=== PATIENT | male | born 1955 | race Caucasian/White ===

== ENCOUNTER → 2017-08-01 | Day surgery (SDC) | payer OTHER ==
[~2017-08-01] VITALS: Ht 170.2 cm; Wt 56.7 kg
--- NOTE | 2017-08-01 18:23 | ED CRITICAL CARE ---
History of Present Illness General Chief Complaint: Syncope and Near-Syncope Stated Complaint: BIBA SYNCOPE Source: family, EMS Exam Limitations: clinical condition Vital Signs & Intake/Output Vital Signs & Intake/Output Vital Signs Date Time Temp Pulse Resp B/P B/P Pulse O2 O2 Flow FiO2 Mean Ox Delivery Rate 08/01 1921 99 96 Ventilator 08/01 192 97 80/0 97 Ventilator 08/01 1904 40/0 08/01 1904 92 0/0 08/01 1859 88 08/01 1851 138/80 08/01 1849 89 147/70 97 Ventilator 08/01 1847 83 88 08/01 1846 84 08/01 1845 90 150/80 08/01 1838 97 140/0 Triage Nurses Notes Reviewed? yes Onset: Abrupt Duration: minute(s): (few) Timing: single episode today Injury Environment: home Severity: severe HPI: 62 year old male with no known past medical history presents via EMS from home for syncopal episodes in the bathroom and vomiting. Per EMS was found hyoptensive and pale. No known trauma. Patient found with poor verbal response , almost intubated in field but positive gag reflex. Sister reported he went to use the bathroom and then started moaning. Peripheral line started in field, fluids started. On arrival to the ER patient is pale, cold to touch on lower extremities with firm abdomen. He appeared to be post ictal on arrival with snoring respirations and right arm rigidity but quickly started to wake up. Patient denied any abdominal pain/chest pain/headache. Moving all 4 extremities. Patient's sister later arrived and confirmed he was fine all day today and then stated he had to go to the bathroom. When she did not hear the shower turn on and heard him moaning she found him not looking well and called EMS. She thinks he may have passed out. He does not see doctors. He is a smoker. No home medications. He last went to work on Monday overnight at [employer] and was fine. Past History Travel History Traveled to [place] past 21 day No Medical History Any Pertinent Medical History? none (UNKNOWN) Surgical History Surgical History: unobtainable Psychosocial History Tobacco Use: Current Daily Use ETOH Use: denies use Family History Hx Contributory? No Review of Systems Review of Systems Constitutional: Reports: weakness. Eyes: Reports: no symptoms. Ears, Nose, Throat, Mouth: Reports: no symptoms. Respiratory: Reports: no symptoms. Cardiovascular: Reports: syncope. Denies: chest pain. Gastrointestinal/Abdominal: Denies: abdominal pain. Genitourinary: Reports: no symptoms. Musculoskeletal: Reports: no symptoms. Skin: Reports: no symptoms. Neurological/Psychological: Reports: see HPI, confusion. All Other Systems: Reviewed and Negative Physical Exam Physical Exam General Appearance: alert, awake, anxious, severe distress, thin Head: atraumatic Eyes: Bilateral: PERRL. Ears, Nose, Throat, Mouth: FOAMING AT MOUTH Neck: normal inspection, supple, full range of motion Respiratory: lungs clear, accessory muscle use, respiratory distress Cardiovascular: regular rate/rhythm, normal peripheral pulses Peripheral Pulses: 2+ radial (R), 2+ radial (L), 2+ femoral (R), 2+ femoral (L) Gastrointestinal: SCAPHOID, FIRM Genital/Rectal: normal genital exam Extremities: 2+ LOWER PITTING EDEMA, COLD TO TOUCH, 2+ DP PULSES Neurologic/Psych: no motor/sensory deficits, awake, alert, CONFUSED Skin: diaphoresis, pallor, COOL Core Measures ACS in differential dx? Yes CVA/TIA Diagnosis No Sepsis Present: No Sepsis Focused Exam Completed? No Progress Differential Diagnoses I considered the following diagnoses in my evaluation of the patient: [AMI, DISSECTION, SYNCOPE, ICH, SEIZURE, CVA, AAA, PE] Plan of Care: Orders Procedure Date/time Status EKG 08/01 1831 Active PATIENT GIVEN NARCAN ON ARRIVAL WITHOUT RESPONSE. IV FLUIDS STARTED. GOOD CAROTID PULSE, POST ICTAL. FIRM ABDOMEN. TAKEN TO CT UPON ARRIVAL WITH CONTINUOUS MONITOR. CT SCAN SHOWED LARGE AAA NONCONTRAST WHICH WAS CONVERTED TO IV CONTRAST. RETURNED TO R0OM WITH INCREASING RESPIRTAORY DISTRESS. STILL NO C/ O PAIN. RADIOLOGY CONFIRMED RUPTURED AAA. PATIENT INTUBATED OROTRACHEALLY 7.5MM ETT. RIGHT FEMORAL CRASH TRIPLE LUMEN PLACED. MASSIVE TRANSFUSION PROTOCOL ORDERED AND UNCROSS MATCHED BLOOD STARTED WITH RAPID TRANSFUSER. DOPAMINE/LEVOPHED DRIPS READIED. SYSTOLIC BLOOD PRESSURE MAINTAINED AT 130'S. SURGICAL PA NOTIFIED BY JS MENDEZ AND VASCULAR SURGERY DR HOANG WAS NOTIFIED. OR WAS READIED. D/W FAMILY (2 SISTERS) AFTER PATIENT TRANSPORTED TO OR. DIAGNOSIS DISCUSSED, I INFORMED THEM OF PATIENTS POSSIBLE GRAVE PROGNONSIS. COUNTY DIRECTOR OFFERED BUT REFUSED. THEY WANTED TO GO HOME AND WAIT FOR FURTHER NEWS. I OFFERED TO TAKE THEM TO THE OR WAITING ROOM. Diagnostic Imaging: Viewed by Me: CT Scan. Discussed w/RAD: CT Scan. Radiology Impression: PATIENT: LANDY HANSON PRESENT AGE: 62 PATIENT ACCOUNT NO: [id number] : 56 LOCATION: [facility] ORDERING PHYSICIAN: Yazan WEINSTEIN SERVICE DATE: 08/01/17 EXAM TYPE: CAT - CT CERV SPINE WO IV CONTRAST; CT HEAD WO IV CONTRAST EXAMINATION: CT HEAD WITHOUT CONTRAST CT CERVICAL SPINE WITHOUT CONTRAST CLINICAL INFORMATION: Unresponsive. Abdominal breathing. Altered mental status. COMPARISON: None TECHNIQUE: CT of the head and cervical spine were performed without intravenous contrast. Multiplanar reformats were rendered and reviewed. The acquired images are motion degraded. DLP: 1976 mGy-cm. FINDINGS: CT head: There is no intracranial hemorrhage, extra-axial collection, or CT evidence of large territory infarct. There are age indeterminate but chronic appearing infarcts in the right caudate, left subinsular white matter, right periatrial white matter, and left cerebellum. There is no mass effect or midline shift. The ventricles are normal in size without evidence of hydrocephalus. There is mild scattered hypoattenuation in the bilateral cerebral white matter, which is nonspecific but likely reflects small vessel disease. The extracranial soft tissues are within normal limits. The calvarium is intact. CT cervical spine: The craniocervical junction is intact. There is trace anterolisthesis of C3 on C4 and trace retrolisthesis of C4 on C5 with alignment otherwise maintained. No cervical spine fracture is seen. There is intervertebral disc height loss with degenerative endplate and bone marrow changes at C4-C5, C5-C6, and C6-C7. Degenerative endplate changes are also present in the upper thoracic spine. There is small right pleural effusion. There is paraseptal emphysema at the lung apices. Motion artifact blurs the soft tissue planes in the neck. No gross fluid collection is seen. There are atheromatous changes involving the bilateral carotid arteries. IMPRESSION: CT head: 1. No large territory infarct, hemorrhage, or midline shift. 2. Age-indeterminate chronic appearing infarcts in the right caudate, left subinsular white matter, right periatrial white matter, and left cerebellum. CT cervical Spine: 1. No cervical spine fracture or traumatic malalignment. 2. Multilevel degenerative spondylotic changes. DICTATED BY: Janeth Yeung MD DATE/TIME DICTATED:08/01/171827 [employer]ENER [employer] CUST[employer]S:STACY DATE/TIME TRANSCRIBED:08/01/171827 CONFIDENTIAL, DO NOT COPY WITHOUT APPROPRIATE AUTHORIZATION. <Electronically signed in Other Vendor System> SIGNED BY: Janeth Yeung MD 08/01/17 184, PATIENT: LANDY HANSON PRESENT AGE: 62 PATIENT ACCOUNT NO: [id number] : 56 LOCATION: [facility] ORDERING PHYSICIAN: Yazan WEINSTEIN SERVICE DATE: 08/01/17 EXAM TYPE: CAT - CT ABD & PELVIS W/O IV CONTRAS; CT CHEST WO IV CONTRAST EXAMINATION: CT CHEST WITHOUT CONTRAST CT ABDOMEN AND PELVIS WITHOUT CONTRAST CLINICAL INFORMATION: UNRESPONSIVE, AGONAL BREATHING, AMS COMPARISON: No pertinent prior studies are available for comparison. TECHNIQUE: Multidetector volumetric imaging was performed from the thoracic inlet through the pubic symphysis. Sagittal and coronal images were reformatted. DOSE: 408 mGy -cm FINDINGS: -CHEST- LUNG: There is mild dependent atelectasis in both lungs. No focal consolidation. No suspicious pulmonary nodules. Central airways are clear. MEDIASTINUM: Heart is borderline enlarged. There is calcific atherosclerosis in the thoracic aorta without aneurysmal dilatation. Small pericardial effusion. The esophagus is filled with fluid, suggesting reflux. There is a small moderate-sized sliding-type hiatal hernia. PERICARDIUM/PLEURA: Small moderate-sized dependent right pleural effusion. There is a small pleural effusion on the left. Small pericardial effusion. CHEST WALL/AXILLA: No adenopathy. Body habitus appears cachectic with anasarca. -ABDOMEN/PELVIS- LIVER , GALLBLADDER, BILIARY TREE: The liver is normal in size, shape, and attenuation. No focal hepatic lesion or biliary ductal dilatation is present. Gallbladder is contracted and contains at least one calcified gallstone measuring 1.2 cm in diameter. Evaluation is region is somewhat limited due to mass effect from the adjacent retroperitoneal hematoma. PANCREAS: Atrophic. The retroperitoneal hematoma produces mass effect upon the pancreatic head, displaced anteriorly. SPLEEN: Unremarkable. ADRENAL GLANDS: Not well seen due to the anasarca. KIDNEYS AND URETERS: The right kidney is displaced anterolaterally as a result of the hematoma is normal in size. No nephrolithiasis or hydronephrosis identified. BLADDER: Partially decompressed and unremarkable. GASTROINTESTINAL TRACT: Evaluation of the bowel is somewhat limited due to the lack of contrast resulting from the intraperitoneal fluid and the absence of intravenous contrast material as well as the degree of anasarca. No bowel dilatation is identified. As mentioned above, there is a small to moderate-sized sliding-type hiatal hernia. A fundal diverticulum is likely present of the stomach. Bowel is shifted into the left mid abdomen as a result of mass effect produced by the right retroperitoneal hematoma. No free air identified. There is a jvfbg-[id number]-utvrkure volume of intraperitoneal free fluid. ABDOMINAL WALL: No hernias. Mild anasarca. VASCULATURE: There is a large infrarenal abdominal aortic aneurysm measuring 6 x 6 cm in cross-section and 10 cm in length, extending from just below the renal arteries to the aortic bifurcation. There is significant associated calcific atherosclerosis atherosclerosis. There is a large, heterogeneous hematoma in the right retroperitoneum extending from the AAA, consistent with a ruptured AAA. As mentioned above, this produces mass effect upon the adjacent structures in the right mid abdomen and right hemipelvis. The hematoma measures roughly 10 x 8 x 22 cm (transverse by AP by craniocaudal). LYMPH NODES: No adenopathy identified, though sensitivity for nodes is somewhat limited on this study. PELVIC VISCERA: Prostate gland is unremarkable. OSSEUS STRUCTURES: There is [id number]-[id number] multilevel degenerative disc disease in the thoracal lumbar spine with mild right convex thoracic scoliotic curvature. Mild degenerative changes are present in the SI joints and hips. No acute osseous abnormalities are identified. IMPRESSION: 1. Ruptured infrarenal abdominal aortic aneurysm with an associated large right retroperitoneal hematoma. 2. Small to moderate volume of intraperitoneal free fluid. 3. Small to moderate-sized right and small left pleural effusions. 4. Anasarca 5. Small to moderate-sized sliding-type hiatal hernia and an adjacent fundal diverticulum. Findings were discussed by telephone with Dr. Mendez at 6: 38 PM on 08/01/2017. DICTATED BY: Ovidio Serrano MD DATE/TIME DICTATED:08/01/171831 [employer] C[employer]:STACY DATE/TIME TRANSCRIBED:08/01/171831 CONFIDENTIAL, DO NOT COPY WITHOUT APPROPRIATE AUTHORIZATION. <Electronically signed in Other Vendor System> SIGNED BY: Ovidio Serrano MD 08/01/17 0203, PATIENT: LANDY HANSON PRESENT AGE: 62 PATIENT ACCOUNT NO: [id number] : 56 LOCATION: [facility] ORDERING PHYSICIAN: Liya Saldivar MD SERVICE DATE: 08/01/17-1817 EXAM TYPE: CAT - CT ABD & PELVIS ANGIOGRAM; CTA CHEST-AORTIC DISSECTION EXAMINATION: CT ANGIOGRAM CHEST, ABDOMEN AND PELVIS CLINICAL INFORMATION: Hypotensive. COMPARISON: None. TECHNIQUE: Noncontrast axial images obtained through the chest. Multiple axial images were obtained through the chest abdomen and pelvis following the administration of 98 mL of Optiray 320 intravenous contrast. Coronal and sagittal reformatted images performed at CT scanner. No 3-D imaging. DLP: 632.6 mGy-cm FINDINGS: VASCULAR: There are diffuse atherosclerotic vascular wall calcifications of the thoracic and abdominal aorta. There is no aneurysm or dissection of the thoracic aorta. There is both aneurysmal dilatation and dissection of the infrarenal abdominal aorta. The aorta measures approximately 6.5 cm AP. There is a dissection of the aorta at the mid abdominal aorta with partial opacification of the false lumen. False lumen measures about 1.4 cm transverse. The true lumen measures 2.6 cm transverse at this level. There is a large retroperitoneal hematoma enlarging the right iliopsoas muscle. This measures approximately 10.5 x 8 x 19.5 cm. The hematoma extends anteriorly around the root of the aorta on the right side of the upper abdomen. There is runoff into the external and internal iliac vessels. These vessels also have atherosclerotic vascular wall calcifications but no stenosis or aneurysm. There is enhancement of the celiac axis but the origin of the celiac axis is thin and attenuated but no dissection of this vessel. There is a normal enhancing SMA. The right renal artery is enhancing but is thin and attenuated. The left renal artery is not visualized, nonenhancing. CT CHEST: Mediastinum: There is mild dilatation of the thoracic esophagus with air-fluid level in the upper thoracic esophagus. There is a moderate-sized hiatal hernia. No mediastinal mass. No significant lymphadenopathy. There is a small pericardial effusion. Lungs: Small region of dependent atelectasis at right lung base. Left lung is clear. Fluid: There are bilateral pleural effusions. The volume is moderate on the right and small on the left. Axilla: No significant lymphadenopathy. CT SCAN ABDOMEN AND PELVIS: Liver, Gallbladder, And Biliary Tree: The liver is normal in size, shape, and attenuation. No focal hepatic lesion or biliary ductal dilatation is present. There are calcified gallstones at the neck of the gallbladder. Pancreas: Unremarkable. There is mass effect upon the pancreas by the large retroperitoneal hematoma. Spleen: Unremarkable. Adrenal Glands: Not well seen. Kidneys And Ureters: The right kidney is displaced anteriorly by the large hematoma but there is enhancement of the cortex. There is no enhancement of the left kidney cortex. Bladder: Unremarkable. Gastrointestinal Tract: Limited evaluation of the bowel. No acute change of the bowel. No bowel obstruction. No bowel wall thickening or edema. Moderate volume of stool in the colon. Mesentery: There is a large volume of abdominal ascites. This has a density measurement of 15 Hounsfield units. Abdominal Wall: No significant hernia is appreciated. Lymph Nodes: Normal. Pelvic Viscera: Unremarkable. Osseous Structures: Unremarkable. IMPRESSION: 1. A 6.5 cm infrarenal aneurysm with dissection of the aneurysm. There is a large retroperitoneal hematoma. There is no enhancement of the left kidney or left renal artery. There is attenuation of the right renal artery and the SMA. 2. Abdominal ascites. 3. Bilateral pleural effusions right larger in volume than left. This critical result was discussed with JS Jones on 08/01/2017, 6:50 PM and it was ascertained that the content and urgency of the report was understood at the time of direct communication. DICTATED BY: Juan Pablo Stewart MD DATE/TIME DICTATED:08/01/171831 [employer] CUST[employer]S:STACY DATE/TIME TRANSCRIBED:08/01/171831 CONFIDENTIAL, DO NOT COPY WITHOUT APPROPRIATE AUTHORIZATION. <Electronically signed in Other Vendor System> SIGNED BY: Juan Pablo Stewart MD 08/01/17 514 Initial ED EKG: NSR, nonspecific ST T wave chg Rhythm Strip: normal sinus rhythm, sinus tachycardia Departure Departure Disposition: STILL A PATIENT Condition: Critical Clinical Impression Primary Impression: AAA (abdominal aortic aneurysm, ruptured) Secondary Impressions: Ascites, Pleural effusion, Respiratory failure, Syncope and collapse Departure Forms: Customer Survey General Discharge Information OR/GI Note Spoke With: Blaire HENSLEY,Jose Pelayo. ED Treatment Decision: LANDY HANSON requires urgent operative management or an emergent procedure that cannot be performed in the Emergency Room setting. Transport To: [facility] Procedures Central Line Central Line Lumen: triple Central Line Procedure: Yes: bentadine prep?. No: sterile drapes applied, sterile dressing applied. Central Line Position: femoral (R) Complications: none Central Line Post Position: sutured, good blood return Intubation Time of Intubation: 1829 Intubation Method: orotracheal Tube Size (cm): 7.5 Medications: ETOMIDATE, VECURONIUM Breath Sounds After Intubation: equal Intubation Complications: vomited Post Intubation Xray? No Critical Care Note Critical Care Note Critical Care Time: 75-104 min the right iliopsoas muscle. This measures approximately 10.5 x 8 x 19.5 cm. The hematoma extends anteriorly around the root of the aorta on the right side of the upper abdomen. There is runoff into the external and internal iliac vessels. These vessels also have atherosclerotic vascular wall calcifications but no stenosis or aneurysm. There is enhancement of the celiac axis but the origin of the celiac axis is thin and attenuated but no dissection of this vessel. There is a normal enhancing SMA. The right renal artery is enhancing but is thin and attenuated. The left renal artery is not visualized, nonenhancing. CT CHEST: Mediastinum: There is mild dilatation of the thoracic esophagus with air-fluid level in the upper thoracic esophagus. There is a moderate-sized hiatal hernia. No mediastinal mass. No significant lymphadenopathy. There is a small pericardial effusion. Lungs: Small region of dependent atelectasis at right lung base. Left lung is clear. Fluid: There are bilateral pleural effusions. The volume is moderate on the right and small on the left. Axilla: No significant lymphadenopathy. CT SCAN ABDOMEN AND PELVIS: Liver, Gallbladder, And Biliary Tree: The liver is normal in size, shape, and attenuation. No focal hepatic lesion or biliary ductal dilatation is present. There are calcified gallstones at the neck of the gallbladder. Pancreas: Unremarkable. There is mass effect upon the pancreas by the large retroperitoneal hematoma. Spleen: Unremarkable. Adrenal Glands: Not well seen. Kidneys And Ureters: The right kidney is displaced anteriorly by the large hematoma but there is enhancement of the cortex. There is no enhancement of the left kidney cortex. Bladder: Unremarkable. Gastrointestinal Tract: Limited evaluation of the bowel. No acute change of the bowel. No bowel obstruction. No bowel wall thickening or edema. Moderate volume of stool in the colon. Mesentery: There is a large volume of abdominal ascites. This has a density measurement of 15 Hounsfield units. Abdominal Wall: No significant hernia is appreciated. Lymph Nodes: Normal. Pelvic Viscera: Unremarkable. Osseous Structures: Unremarkable. IMPRESSION: 1. A 6.5 cm infrarenal aneurysm with dissection of the aneurysm. There is a large retroperitoneal hematoma. There is no enhancement of the left kidney or left renal artery. There is attenuation of the right renal artery and the SMA. 2. Abdominal ascites. 3. Bilateral pleural effusions right larger in volume than left. This critical result was discussed with JS Jones on 08/01/2017, 6:50 PM and it was ascertained that the content and urgency of the report was understood at the time of direct communication. DICTATED BY: Juan Pablo Stewart MD DATE/TIME DICTATED:08/01/171831 [employer] C[employer]S:STACY DATE/TIME TRANSCRIBED:08/01/171831 CONFIDENTIAL, DO NOT COPY WITHOUT APPROPRIATE AUTHORIZATION. <Electronically signed in Other Vendor System> SIGNED BY: Juan Pablo Stewart MD 08/01/171908 Initial ED EKG: NSR, nonspecific ST T wave chg Rhythm Strip: normal sinus rhythm, sinus tachycardia Departure Departure Disposition: STILL A PATIENT Condition: Critical Clinical Impression Primary Impression: AAA (abdominal aortic aneurysm, ruptured) Secondary Impressions: Ascites, Pleural effusion, Respiratory failure, Syncope and collapse Departure Forms: Customer Survey General Discharge Information OR/GI Note Spoke With: Blaire HENSLEY,Jose Fowler ED Treatment Decision: LANDY HANSON requires urgent operative management or an emergent procedure that cannot be performed in the Emergency Room setting. Transport To: [facility] Procedures Central Line Central Line Lumen: triple Central Line Procedure: Yes: bentadine prep?. No: sterile drapes applied, sterile dressing applied. Central Line Position: femoral (R) Complications: none Central Line Post Position: sutured, good blood return Intubation Time of Intubation: 1829 Intubation Method: orotracheal Tube Size (cm): 7.5 Medications: ETOMIDATE, VECURONIUM Breath Sounds After Intubation: equal Intubation Complications: vomited Post Intubation Xray? No Critical Care Note Critical Care Note Critical Care Time: 75-104 min
--- NOTE | 2017-08-01 18:41 | CT SCAN REPORT ---
EXAMINATION: CT HEAD WITHOUT CONTRAST CT CERVICAL SPINE WITHOUT CONTRAST CLINICAL INFORMATION: Unresponsive. Abdominal breathing. Altered mental status. COMPARISON: None TECHNIQUE: CT of the head and cervical spine were performed without intravenous contrast. Multiplanar reformats were rendered and reviewed. The acquired images are motion degraded. DLP: 1976 mGy-cm. FINDINGS: CT head: There is no intracranial hemorrhage, extra-axial collection, or CT evidence of large territory infarct. There are age indeterminate but chronic appearing infarcts in the right caudate, left subinsular white matter, right periatrial white matter, and left cerebellum. There is no mass effect or midline shift. The ventricles are normal in size without evidence of hydrocephalus. There is mild scattered hypoattenuation in the bilateral cerebral white matter, which is nonspecific but likely reflects small vessel disease. The extracranial soft tissues are within normal limits. The calvarium is intact. CT cervical spine: The craniocervical junction is intact. There is trace anterolisthesis of C3 on C4 and trace retrolisthesis of C4 on C5 with alignment otherwise maintained. No cervical spine fracture is seen. There is intervertebral disc height loss with degenerative endplate and bone marrow changes at C4-C5, C5-C6, and C6-C7. Degenerative endplate changes are also present in the upper thoracic spine. There is small right pleural effusion. There is paraseptal emphysema at the lung apices. Motion artifact blurs the soft tissue planes in the neck. No gross fluid collection is seen. There are atheromatous changes involving the bilateral carotid arteries. IMPRESSION: CT head: 1. No large territory infarct, hemorrhage, or midline shift. 2. Age-indeterminate chronic appearing infarcts in the right caudate, left subinsular white matter, right periatrial white matter, and left cerebellum. CT cervical Spine: 1. No cervical spine fracture or traumatic malalignment. 2. Multilevel degenerative spondylotic changes.
[2017-08-01 18:49] LABS: ABSOLUTE BASOPHIL COUNT 0 /CUMM (0.0-0.2); ABSOLUTE EOSINOPHIL COUNT 0 /CUMM (0.0-0.7); ABSOLUTE GRANULOCYTE CT 11.1 /CUMM (1.4-6.5); ABSOLUTE LYMPH COUNT 1.2 /CUMM (1.2-3.4); ABSOLUTE MONOCYTE COUNT 1.3 /CUMM (0.10-0.60); BASOPHIL % 0 % (0.0-2.0); EOSINOPHIL % 0 % (0-5); GRANULOCYTE % 81.6 % (42.2-75.2); HEMATOCRIT 35.3 % (42-52); MEAN CORPUSCULAR HGB 28.9 PG (27.0-31.0); MEAN CORPUSCULAR HGB CONC 31.9 G/DL (33.0-37.0); MEAN CORPUSCULAR VOLUME 90.7 FL (80.0-94.0); PLATELET COUNT 121 /CUMM (130-400); RBC DISTRIBUTION WIDTH 16.5 % (11.5-14.5); WHITE BLOOD CELL COUNT 13.6 /CUMM (4.8-10.8)
--- NOTE | 2017-08-01 18:55 | CT SCAN REPORT ---
EXAMINATION: CT CHEST WITHOUT CONTRAST CT ABDOMEN AND PELVIS WITHOUT CONTRAST CLINICAL INFORMATION: UNRESPONSIVE, AGONAL BREATHING, AMS COMPARISON: No pertinent prior studies are available for comparison. TECHNIQUE: Multidetector volumetric imaging was performed from the thoracic inlet through the pubic symphysis. Sagittal and coronal images were reformatted. DOSE: 408 mGy-cm FINDINGS: -CHEST- LUNG: There is mild dependent atelectasis in both lungs. No focal consolidation. No suspicious pulmonary nodules. Central airways are clear. MEDIASTINUM: Heart is borderline enlarged. There is calcific atherosclerosis in the thoracic aorta without aneurysmal dilatation. Small pericardial effusion. The esophagus is filled with fluid, suggesting reflux. There is a small moderate-sized sliding-type hiatal hernia. PERICARDIUM/PLEURA: Small moderate-sized dependent right pleural effusion. There is a small pleural effusion on the left. Small pericardial effusion. CHEST WALL/AXILLA: No adenopathy. Body habitus appears cachectic with anasarca. -ABDOMEN/PELVIS- LIVER, GALLBLADDER, BILIARY TREE: The liver is normal in size, shape, and attenuation. No focal hepatic lesion or biliary ductal dilatation is present. Gallbladder is contracted and contains at least one calcified gallstone measuring 1.2 cm in diameter. Evaluation is region is somewhat limited due to mass effect from the adjacent retroperitoneal hematoma. PANCREAS: Atrophic. The retroperitoneal hematoma produces mass effect upon the pancreatic head, displaced anteriorly. SPLEEN: Unremarkable. ADRENAL GLANDS: Not well seen due to the anasarca. KIDNEYS AND URETERS: The right kidney is displaced anterolaterally as a result of the hematoma is normal in size. No nephrolithiasis or hydronephrosis identified. BLADDER: Partially decompressed and unremarkable. GASTROINTESTINAL TRACT: Evaluation of the bowel is somewhat limited due to the lack of contrast resulting from the intraperitoneal fluid and the absence of intravenous contrast material as well as the degree of anasarca. No bowel dilatation is identified. As mentioned above, there is a small to moderate-sized sliding-type hiatal hernia. A fundal diverticulum is likely present of the stomach. Bowel is shifted into the left mid abdomen as a result of mass effect produced by the right retroperitoneal hematoma. No free air identified. There is a [id number] volume of intraperitoneal free fluid. ABDOMINAL WALL: No hernias. Mild anasarca. VASCULATURE: There is a large infrarenal abdominal aortic aneurysm measuring 6 x 6 cm in cross-section and 10 cm in length, extending from just below the renal arteries to the aortic bifurcation. There is significant associated calcific atherosclerosis atherosclerosis. There is a large, heterogeneous hematoma in the right retroperitoneum extending from the AAA, consistent with a ruptured AAA. As mentioned above, this produces mass effect upon the adjacent structures in the right mid abdomen and right hemipelvis. The hematoma measures roughly 10 x 8 x 22 cm (transverse by AP by craniocaudal). LYMPH NODES: No adenopathy identified, though sensitivity for nodes is somewhat limited on this study. PELVIC VISCERA: Prostate gland is unremarkable. OSSEUS STRUCTURES: There is [id number] multilevel degenerative disc disease in the thoracal lumbar spine with mild right convex thoracic scoliotic curvature. Mild degenerative changes are present in the SI joints and hips. No acute osseous abnormalities are identified. IMPRESSION: 1. Ruptured infrarenal abdominal aortic aneurysm with an associated large right retroperitoneal hematoma. 2. Small to moderate volume of intraperitoneal free fluid. 3. Small to moderate-sized right and small left pleural effusions. 4. Anasarca 5. Small to moderate-sized sliding-type hiatal hernia and an adjacent fundal diverticulum. Findings were discussed by telephone with Dr. Mendez at 6:38 PM on 08/01/2017.
--- NOTE | 2017-08-01 19:09 | CT SCAN REPORT ---
EXAMINATION: CT ANGIOGRAM CHEST, ABDOMEN AND PELVIS CLINICAL INFORMATION: Hypotensive. COMPARISON: None. TECHNIQUE: Noncontrast axial images obtained through the chest. Multiple axial images were obtained through the chest abdomen and pelvis following the administration of 98 mL of Optiray 320 intravenous contrast. Coronal and sagittal reformatted images performed at CT scanner. No 3-D imaging. DLP: 632.6 mGy-cm FINDINGS: VASCULAR: There are diffuse atherosclerotic vascular wall calcifications of the thoracic and abdominal aorta. There is no aneurysm or dissection of the thoracic aorta. There is both aneurysmal dilatation and dissection of the infrarenal abdominal aorta. The aorta measures approximately 6.5 cm AP. There is a dissection of the aorta at the mid abdominal aorta with partial opacification of the false lumen. False lumen measures about 1.4 cm transverse. The true lumen measures 2.6 cm transverse at this level. There is a large retroperitoneal hematoma enlarging the right iliopsoas muscle. This measures approximately 10.5 x 8 x 19.5 cm. The hematoma extends anteriorly around the root of the aorta on the right side of the upper abdomen. There is runoff into the external and internal iliac vessels. These vessels also have atherosclerotic vascular wall calcifications but no stenosis or aneurysm. There is enhancement of the celiac axis but the origin of the celiac axis is thin and attenuated but no dissection of this vessel. There is a normal enhancing SMA. The right renal artery is enhancing but is thin and attenuated. The left renal artery is not visualized, nonenhancing. CT CHEST: Mediastinum: There is mild dilatation of the thoracic esophagus with air-fluid level in the upper thoracic esophagus. There is a moderate-sized hiatal hernia. No mediastinal mass. No significant lymphadenopathy. There is a small pericardial effusion. Lungs: Small region of dependent atelectasis at right lung base. Left lung is clear. Fluid: There are bilateral pleural effusions. The volume is moderate on the right and small on the left. Axilla: No significant lymphadenopathy. CT SCAN ABDOMEN AND PELVIS: Liver, Gallbladder, And Biliary Tree: The liver is normal in size, shape, and attenuation. No focal hepatic lesion or biliary ductal dilatation is present. There are calcified gallstones at the neck of the gallbladder. Pancreas: Unremarkable. There is mass effect upon the pancreas by the large retroperitoneal hematoma. Spleen: Unremarkable. Adrenal Glands: Not well seen. Kidneys And Ureters: The right kidney is displaced anteriorly by the large hematoma but there is enhancement of the cortex. There is no enhancement of the left kidney cortex. Bladder: Unremarkable. Gastrointestinal Tract: Limited evaluation of the bowel. No acute change of the bowel. No bowel obstruction. No bowel wall thickening or edema. Moderate volume of stool in the colon. Mesentery: There is a large volume of abdominal ascites. This has a density measurement of 15 Hounsfield units. Abdominal Wall: No significant hernia is appreciated. Lymph Nodes: Normal. Pelvic Viscera: Unremarkable. Osseous Structures: Unremarkable. IMPRESSION: 1. A 6.5 cm infrarenal aneurysm with dissection of the aneurysm. There is a large retroperitoneal hematoma. There is no enhancement of the left kidney or left renal artery. There is attenuation of the right renal artery and the SMA. 2. Abdominal ascites. 3. Bilateral pleural effusions right larger in volume than left. This critical result was discussed with JS Jones on 08/01/2017, 6:50 PM and it was ascertained that the content and urgency of the report was understood at the time of direct communication.
[2017-08-01 19:22] VITALS: BP 80/0
[2017-08-01 19:36] LABS: PT 30.2 SEC (9.4-12.5); PTT 39 SEC (25-37)
[2017-08-01 21:00] LABS: ABSOLUTE BASOPHIL COUNT 0 /CUMM (0.0-0.2); ABSOLUTE EOSINOPHIL COUNT 0 /CUMM (0.0-0.7); ABSOLUTE GRANULOCYTE CT 9.7 /CUMM (1.4-6.5); ABSOLUTE LYMPH COUNT 0.4 /CUMM (1.2-3.4); ABSOLUTE MONOCYTE COUNT 0.4 /CUMM (0.10-0.60); BASOPHIL % 0.1 % (0.0-2.0); EOSINOPHIL % 0.1 % (0-5); MEAN CORPUSCULAR HGB 28.8 PG (27.0-31.0); MEAN CORPUSCULAR HGB CONC 33.2 G/DL (33.0-37.0); MEAN CORPUSCULAR VOLUME 86.8 FL (80.0-94.0); RBC DISTRIBUTION WIDTH 14.9 % (11.5-14.5); RED BLOOD CELL CT 4.82 /CUMM (4.70-6.10); WHITE BLOOD CELL COUNT 10.5 /CUMM (4.8-10.8)
[2017-08-01 21:09] LABS: HEMATOCRIT 41.8 % (42-52); PLATELET COUNT 26 /CUMM (130-400)
[2017-08-01 21:21] LABS: GRANULOCYTE % 91.9 % (42.2-75.2)
[2017-08-01 21:37] LABS: PT 47.5 SEC (9.4-12.5); PTT > 120 SEC (25-37)
--- NOTE | 2017-08-01 23:35 | Operative Report ---
Operative/Inv Procedure Report Surgery Date: 08/01/17 Name of Procedure: 1-Repair of aortic aneurysm acute rupture 2-Explaratory laparatomy 3-Thrombectomy both Iliacs Pre-Operative Diagnosis: rupture AAA Post-Operative Diagnosis: same Estimated Blood Loss: 2liters Surgeon/Grain Operator: Jose Rudd Anesthesia: general endotracheal tube Monitors: A-line,central line, 4 large bore IV, right groin central line IV Fluids: 5 liters Operative Indication: Intraabdominal bleeding Operative/Procedure Note Note: The patient was immediately brought into the OR. CTA showed free rurure into the retroperitoneum, and abdomen. He had being evaluated for syncope. A ct was obtained as well.The findings showed a large AAA juxtarenal. Large infrarenal neck.greater than 30mm.The left renalwas not visualized and appeared thrombosed. In the ER the patient decompensated and was coded. The patient was rushed to the OR. Time out was performed. The entire abdomen was prepped and draped. The abdomen was opened. Free blood noted. The colon and instestine mobilized. Immediate suprarenal control obtained just below the SMA. Then the aortic clamp moved to below the left right renal. The iliacs dissected. the patient had regained a BP in the 140 mmHg syatolic. Blood transfused. Cell saver as well. The patient remained acidotic. The aortic sac dissected, opened and the graft sawn. The proximal aortic anstomoses was done very quickly, tested and no bleeding. Then the distal anastomosis in asimilar fashion. Both iliacs thrombectomized. Prior to that the patient lost his BP. The operation had being finished. The patient was coded simultaneouly. The defribillator was used in combination with pressors and cardiac agonist. Despite all heroic efforts the patient . The fascia and skin closed in 2 layers. The ME and family informed. Findings: Free Rupture into retroperitonium, and abdominal cavity. Thrombus in aorta, and iliacs Discharge Disposition:
== END | disposition expired ==
LOC: ERH 17:47 → ER-OR 18:42 → STS 19:22 → ER-OR 19:22
PROVIDERS: Physician Assistant Medical; Surgery Vascular Surgery
DX: I71.3 Abdominal aortic aneurysm, ruptured (principal); J96.90 Respiratory failure, unspecified, unspecified whether with hypoxia or hypercapnia
CPT/HCPCS: 1387; 74174; 74176; 80307; 81001; 82436; 86920; 87040; 88304; 93005; 93010; 94799; 99291; C1768; J1644; J2250; J2310; J3010; P9016; P9017; Q9967